=== PATIENT | female | born 1935 | race Caucasian/White ===

== ENCOUNTER → 2016-09-18 | Outpatient (CLI) | payer MEDICARE, BC ==
[~2016-09-18] MED LIST: ABILIFY2 MG PO; ABILIFY5 MG PO; AMITIZA24 MCG PO; AMITIZA8 MCG PO; ANEXSIA 5/325 M1 TA1 PO; ASPIRIN81 M2 PO; ATIVAN PO; ATIVAN2 M1 PO; ATIVAN2 MG PO; ATORVASTATIN CA10 MG PO; BISACODYL EC5 MG PO; CALCIUM500 MG PO; CARBIDOPA-LEVO1 EAC1 PO; CLONIDINE HCL0.1 MG PO; COLACE PO; COUMADIN PO; COUMADIN1 MG PO; CYANOCOBAL1000 MCG/M IM; CYMBALTA30 MG PO; DARVOCET-N 1001 TAB PO; DEXILANT60 MG PO; DOCUPRENE100 MG PO; DOXYCYCLINE HY100 M3 PO; ESTRACE42.5 GM VAG; FLAGYL250 M1 PO; FLEXERIL PO; FLONASE16 GM; IMDUR-ER30 M1 PO; LANOXIN PO; LEXAPRO PO; LIPITOR PO; LYRICA50 MG PO; MACRODANTIN PO; MIRALAX17 GM PO; MULTI-VITAMIN1 TAB PO; MYRBETRIQ25 MG PO; NEUPRO1 EAC1 TD; NEXIUM PO; NITROFURANTOIN50 M1 PO; NITROGLYCERIN0.4 MG SL; NORCO 10/325 TA1 TAB PO; ONDANSETRON HCL4 M1 PO; PEPTO-BISMOL PO; PERCOCET 10/3251 TAB PO; SENNA8.6 M1 PO; VIBRAMYCIN100 M1 PO; VICODIN PO; ZOFRAN PO; [UNRECOGNIZED DRUG - REMARK] PO
--- NOTE | ~2016-09-18 | NM4 ---
[facility] A Service of [facility] [place] [facility] RADIOLOGY TEXT RESULTS PATIENT: KAYLA CALVO LOCATION: [facility] : 39 UNIT #: [id number] AGE: [address]: Best Amaya MD SEX: F ORDER DR: [id number] [facility] [address] [place], [place] [address] [id number] O MR#: [id number] Acc #: [id number] NAME: KAYLA CALVO : 1935 SEX: F STUDY DATE/TIME: 09/18/2016 10:49 UNIT: [facility] ROOM: STUDY DESCRIPTION: MA Bone or Joint 3 Phase Study Attending Physician: Best Amaya M.D. Referring Physician: Best Amaya M.D. Ordering Physician: Best Amaya M.D. Primary Care Physician: Edvin Gann M.D. MEDICAL IMAGING REPORT This report is preliminary unless electronic signature is present EXAM Three-phase bone scan HISTORY 81-year-old female complains of anterior knee pain, right knee, difficulty walking. 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 COMPARISON Bilateral knee films 09/14/2016 FINDINGS Three-phase bone scan was performed over the knees and proximal thighs bilaterally. Examination demonstrates normal symmetric flow to the knees. Immediate blood-pool imaging demonstrates photopenic areas within both knees from the patient's bilateral knee arthroplasties. Mild increased uptake noted about the tibial components and within the patellofemoral compartments of both knees which is felt to be within normal limits. There is abnormal increased uptake within the mid shaft of the right femur seen only on delayed phase imaging. This is nonspecific. I suspect this represents normal stress uptake at the distal stem of the patient's right total hip arthroplasty. Underlying pathologic lesion considered less likely. The technologist suggested that this may represent urinary contamination. However given its location overlying the femoral shaft on both the lateral and AP views, this is felt to represent a real finding and again may represent an area of stress reaction within the femoral shaft. IMPRESSION 1. Mild increased uptake about the tibial components of both knees and also within the patellofemoral region of both knees, felt to represent normal distribution of uptake in this patient with bilateral total knee arthroplasties. [facility]. [facility] Service of [facility] [place] [facility] RADIOLOGY TEXT RESULTS PATIENT: KAYLA CALVO LOCATION: [facility] : 39 UNIT #: [id number] AGE: [address]: Best Amaya MD SEX: F ORDER DR: 2. Focal area of increased uptake within the mid-right femoral shaft seen only on delayed-phase images. The technologist suggest that this may represent urinary contamination, however, the fact that this is seen overlying the femur on both the AP and lateral views I suspect this is within the femur and may represent an area of increased uptake related to stress reaction as the patient has a right hip arthroplasty and this may represent some increased uptake at the distal tip of the arthroplasty component. If clinically warranted, further evaluation thin section CT may be of benefit to assess for fracture or stress change though no increased uptake or flow is seen on the immediate blood pool or flow images to suggest an active inflammatory process. Dictated by... Mal Valverde M.D. THIS IS AN ELECTRONICALLY VERIFIED REPORT Mal Valverde M.D. at 09/21/2016 8:05 AM RAFAEL/john TD: 09/19/2016 17:05 JOB #: [id number] MEDICAL IMAGING REPORT Page 1 of 1 COPY
== END | disposition home or self-care (01) ==
LOC: CNUC 09:44
DX: M25.561 Pain in right knee (principal); R26.2 Difficulty in walking, not elsewhere classified; Z96.653 Presence of artificial knee joint, bilateral; Z96.641 Presence of right artificial hip joint
CPT/HCPCS: 78315; A9503